=== PATIENT | female | born 1960 | race Caucasian/White ===

== ENCOUNTER 2016-10-14 11:13 | Inpatient (IN) | payer OTHER ==
[~2016-10-14] VITALS: Ht 168.9 cm; Wt 72.6 kg
[2016-10-14] MEDS ORDERED: NS 100 ML (IVPB) BAG IV ONE (11:45)
[2016-10-14] MEDS ORDERED: IOHEXOL 350 MG/ML 100 ML (OMNIPAQUE 350) VIAL IV ONE (11:45)
--- NOTE | 2016-10-14 11:46 | ED Abdominal Pain ---
General Stated Complaint: ABD/BACK PAIN Source of Information: Patient Exam Limitations: No Limitations History of Present Illness Time Seen By Provider: 11:44 Initial Comments Brought to ER by her daughter with reports of this being her third day of epigastric abdominal pain that radiates through to her back. She started out with this pain and vomiting 3 days ago. She has not had a bowel movement in 3 days despite taking laxative and this is very unusual for her. She has not passed gas in 3 days. She states that at the onset of this and even into yesterday some, she had pain between her shoulder blades but no pain in her chest. She does smoke 1.5 pack of cigarettes per day. She's never had this pain before. Timing/Duration: 2-3 Days Severity/Quality: Moderate Location: Epigastric Radiation: No Radiation Associated Symptoms: Back Pain, No Chest Pain, Diaphoresis, No Fever/Chills, Nausea/Vomiting Allergies and Home Medications Allergies Coded Allergies: No Allergy Information Available (Unverified , 10/14/16) Home Medications Ibuprofen 200 Mg Tablet, 600 MG PO q6 PRN for PAIN-MILD TO MODERATE, (Reported) [Otc Sleep Med] , 1 TAB PO HS PRN for sl, (Reported) Review of Systems Constitutional: see HPI, diaphoresis EENTM: No Symptoms Reported Respiratory: No Symptoms Reported, Denies Cough, Denies Shortness of Air Cardiovascular: No Symptoms Reported, Denies Chest Pain, Denies Edema, Denies Irregular Heart Rate, Denies Lightheadedness, Denies Palpitations, Denies Syncope Gastrointestinal: See HPI, Abdominal Pain, Constipated, Nausea, Vomiting Musculoskeletal: no symptoms reported Skin: no symptoms reported Psychiatric/Neurological: No Symptoms Reported Endocrine: No Symptoms Reported Hematologic/Lymphatic: No Symptoms Reported Past Gebzjsg-Rpvxil-Cbahih Hx Patient Social History Recent Foreign Travel: No Contact w/Someone Who Travel: No Physical Exam Vital Signs VS - Last 72 Hours, by Label 10/14/16 10/14/16 10/14/16 11:38 11:58 13:24 Temp 98.9 98.9 98.9 Pulse 87 Resp 18 B/P (MAP) 137/98 Pulse Ox 95 O2 Delivery Room Air Capillary Refill : General Appearance: WD/WN, no apparent distress HEENT: PERRL/EOMI, normal ENT inspection Neck: non-tender, full range of motion Respiratory: no respiratory distress, no accessory muscle use Cardiovascular: regular rate, rhythm, no murmur Gastrointestinal: normal bowel sounds, soft, abnormal bowel sounds (hypoactive) , tenderness Neurologic/Psychiatric: alert, normal mood/affect, oriented x 3 Skin: normal color, warm/dry Progress/Results/Core Measures Results/Orders Lab Results Laboratory Tests Test 10/14/16 11:38 10/14/16 11:45 Range/Units Urine Color YELLOW Urine Clarity VERY CLOUDY H Urine pH 6 5-9 Urine Specific [place] 1.025 H 1.016-1.022 Urine Protein 1+ H NEGATIVE Urine Glucose (UA) NEGATIVE NEGATIVE Urine Ketones NEGATIVE NEGATIVE Urine Nitrite NEGATIVE NEGATIVE Urine Bilirubin NEGATIVE NEGATIVE Urine Urobilinogen 1 NORMAL MG/DL Urine Leukocyte Esterase 2+ H NEGATIVE Urine RBC (Auto) 1+ H NEGATIVE Urine RBC 0-2 /HPF Urine WBC 5-10 H /HPF Urine Squamous Epithelial Cells 5-10 /HPF Urine Crystals NONE /LPF Urine Bacteria LARGE H /HPF Urine Casts NONE /LPF Urine Mucus NEGATIVE /LPF Urine Culture Indicated YES White Blood Count 10.1 4.3-11.0 10^3/uL Red Blood Count 4.62 4.35-5.85 10^6/uL Hemoglobin 14.7 11.5-16.0 G/DL Hematocrit 42 35-52 % Mean Corpuscular Volume 90 80-99 FL Mean Corpuscular Hemoglobin 32 25-34 PG Mean Corpuscular Hemoglobin Concent 35 32-36 G/DL Red Cell Distribution Width 12.5 10.0-14.5 % Platelet Count 418 H 130-400 10^3/uL Mean Platelet Volume 9.2 7.4-10.4 FL Neutrophils (%) (Auto) 61 42-75 % Lymphocytes (%) (Auto) 31 12-44 % Monocytes (%) (Auto) 7 0-12 % Eosinophils (%) (Auto) 0 0-10 % Basophils (%) (Auto) 0 0-10 % Neutrophils # (Auto) 6.2 1.8-7.8 X 10^3 Lymphocytes # (Auto) 3.2 1.0-4.0 X 10^3 Monocytes # (Auto) 0.7 0.0-1.0 X 10^3 Eosinophils # (Auto) 0.0 0.0-0.3 10^3/uL Basophils # (Auto) 0.0 0.0-0.1 10^3/uL Sodium Level 135 135-145 MMOL/L Potassium Level 3.9 3.6-5.0 MMOL/L Chloride Level 101 98-107 MMOL/L Carbon Dioxide Level 20 L 21-32 MMOL/L Anion Gap 14 5-14 MMOL/L Blood Urea Nitrogen 8 7-18 MG/DL Creatinine 0.77 0.60-1.30 MG/DL Estimat Glomerular Filtration Rate > 60 BUN/Creatinine Ratio 10 Glucose Level 111 H 70-105 MG/DL Calcium Level 9.8 8.5-10.1 MG/DL Total Bilirubin 0.7 0.1-1.0 MG/DL Aspartate Amino Transf (AST/SGOT) 15 5-34 U/L Alanine Aminotransferase (ALT/SGPT) 16 0-55 U/L Alkaline Phosphatase 86 40-136 U/L Troponin I < 0.30 <0.30 NG/ML Total Protein 7.4 6.4-8.2 G/DL Albumin 4.4 3.2-4.5 G/DL Lipase 12 8-78 U/L My Orders Orders - MORTEZA JOY SKILLED NURSING CASE MANAGER Cbc With Automated Diff (10/14/16 11:19) Comprehensive Metabolic Panel (10/14/16 11:19) Ua Culture If Indicated (10/14/16 11:19) Lipase (10/14/16 11:19) Saline Lock/Iv-Start (10/14/16 11:19) Ekg Tracing (10/14/16 11:42) Troponin I (10/14/16 11:42) Ct Abdomen/Pelvis W (10/14/16 11:42) Iohexol Injection (Omnipaque 350 Mg/Ml 1 (10/14/16 11:45) Ns (Ivpb) (Sodium Chloride 0.9% Ivpb Bag (10/14/16 11:45) Fentanyl Injection (Sublimaze Injection (10/14/16 12:00) Ondansetron Injection (Zofran Injectio (10/14/16 12:00) Ondansetron Injection (Zofran Injectio (10/14/16 11:50) Urine Culture (10/14/16 11:38) Fentanyl Injection (Sublimaze Injection (10/14/16 13:30) Medications Given in ED Current Medications Medications Dose Ordered Sig/[place] Route Start Time Stop Time Status Last Admin Dose Admin Fentanyl Citrate 50 mcg ONCE ONCE IVP 10/14/16 12:00 10/14/16 12:01 DC 10/14/16 11:58 50 MCG Fentanyl Citrate 75 mcg ONCE ONCE IVP 10/14/16 13:30 10/14/16 13:31 DC 10/14/16 13:24 75 MCG Iohexol 100 ml ONCE ONCE IV 10/14/16 11:45 10/14/16 11:46 DC 10/14/16 12:26 100 ML Ondansetron HCl 4 mg ONCE ONCE IVP 10/14/16 12:00 10/14/16 12:01 DC 10/14/16 11:56 4 MG Sodium Chloride 100 ml ONCE ONCE IV 10/14/16 11:45 10/14/16 11:46 DC 10/14/16 12:26 80 ML Vital Signs/I&O Vital Sign - Last 12Hours 10/14/16 10/14/16 10/14/16 11:38 11:58 13:24 Temp 98.9 98.9 98.9 Pulse 87 Resp 18 B/P (MAP) 137/98 Pulse Ox 95 O2 Delivery Room Air Diagnostic Imaging Diagonstic Imaging: CT Comments NAME: PIERO DUENAS [facility] REC#: [id number] PT STATUS: REG ER : 1960 PHYSICIAN: MORTEZA JOY APRN ADMIT DATE: 10/14/16/ER Draft Date of Exam:10/14/16 CT ABDOMEN/PELVIS W PROCEDURE: CT abdomen and pelvis with contrast. TECHNIQUE: Multiple contiguous axial images were obtained through the abdomen and pelvis after administration of intravenous contrast. INDICATION: Upper abdominal and back pain. Vomiting. No comparison is available. FINDINGS: The visualized lung bases are clear without infiltrate or effusion. The liver demonstrates no evidence of a focal intrahepatic abnormality. The patient is status post cholecystectomy. There is no abnormal biliary dilatation. The pancreas appears normal. The spleen is unremarkable. There is no adrenal mass. The kidneys enhance normally and are nonobstructed. There are prior operative changes demonstrated of a gastric bypass. There is abnormal dilation demonstrated of the Skylar limb. This measures up to 5.4 cm in diameter. There is some mild swirling demonstrated of the upper mesentery with some prominent lymph nodes demonstrated within the mesentery and omentum. The findings are suspect for obstruction of this Skylar limb. The possibility of internal hernia would also be a consideration. Remainder of the loops of small and large bowel appear normal in caliber. There is no evidence of free air or evidence of abscess. There is no pneumatosis or portal venous gas. There is a small degree of free fluid within the low pelvis. The urinary bladder is nondistended. The patient is status post previous hysterectomy. Acute osseous abnormality is demonstrated. Atherosclerotic calcification within the aorta and mesenteric vessels appear patent. IMPRESSION: 1. Patient status post previous gastric bypass. There is abnormal dilation demonstrated of the Skylar limb measuring up to 5.4 cm which would suggest obstruction of this limb. There are prominent central mesenteric and omental lymph nodes and there is some swirling of the mesentery. Given this mesenteric swirling and prior surgical history, the possibility of an internal hernia as a cause of obstruction is a primary consideration. 2. There is no free air or evidence of abscess. There is no pneumatosis. 3. There is a small degree of free fluid demonstrated within the low pelvis. Dictated on workstation # [id number] Dict: 10/14/16 1243 Trans: 10/14/16 1303 B[place]NER [id number] Interpreted by: VICKY LAURA MD Electronically signed by: Departure Communication Time/Spoke to Admitting Phy: 13:[address] Cortes accepts patient for admission Progress Notes 1340-I discussed case with Dr. Edward. He is evaluated the patient. Patient would like an opinion from Dr. Cortes and Dr. Edward agrees with this plan. I discussed the case with Dr. Cortes. He will take the patient for admission, recommends antiemetics, pain medication and IV fluids, nothing by mouth he will see the patient tonight or tomorrow morning. Impression Impression: Primary Impression: Bowel obstruction Disposition: ADMITTED INPATIENT Condition: Stable Decision to Admit Reason: Admit from ER (General) Decision to Admit/Date: Oct 14, 2016 Time/Decision to Admit Time: 13:10 Departure-Patient Inst. Decision time for Depature: 13:09 Referrals: IHSAN DELACRUZ DO (PCP/Family) Primary Care Physician MORTEZA JOY SKILLED NURSING CASE MANAGER Oct 14, 2016 11:46
[2016-10-14] MEDS ORDERED: ONDANSETRON 4 MG/2 ML (SDV) Z0FRAN ONE (11:50)
[2016-10-14 11:53] LABS: BASOPHILS % (AUTO) 0 % (0-10); EOSINOPHILS % (AUTO) 0 % (0-10); LYMPHOCYTES # (AUTO) 3.2 X 10^3 (1.0-4.0); LYMPHOCYTES % (AUTO) 31 % (12-44); MEAN CORPUSCULAR HEMOGLOBIN 32 PG (25-34); MEAN CORPUSCULAR HGB CONC 35 G/DL (32-36); MEAN CORPUSCULAR VOLUME 90 FL (80-99); MEAN PLATELET VOLUME 9.2 FL (7.4-10.4); MONOCYTES # (AUTO) 0.7 X 10^3 (0.0-1.0); MONOCYTES % (AUTO) 7 % (0-12); NEUTROPHILS # (AUTO) 6.2 X 10^3 (1.8-7.8); NEUTROPHILS % (AUTO) 61 % (42-75); PLATELET COUNT 418 10^3/uL (130-400); RED BLOOD COUNT 4.62 10^6/uL (4.35-5.85); RED CELL DISTRIBUTION WIDTH 12.5 % (10.0-14.5); WHITE BLOOD COUNT 10.1 10^3/uL (4.3-11.0)
[2016-10-14] MEDS ORDERED: ONDANSETRON 4 MG/2 ML (SDV) Z0FRAN IVP ONE (12:00)
[2016-10-14] MEDS ORDERED: fentaNYL INJECTION 100 MCG/2 ML AMP IVP ONE ×2 (12:00→13:30)
[2016-10-14 12:01] LABS: BILIRUBIN,URINE NEGATIVE (NEGATIVE); KETONES,URINE NEGATIVE (NEGATIVE); LEUKOCYTE ESTERASE ,URINE 2+ (NEGATIVE); NITRITE,URINE NEGATIVE (NEGATIVE); PH,URINE 6 (5-9); PROTEIN,URINE 1+ (NEGATIVE); UROBILINOGEN,URINE 1 MG/DL (NORMAL)
[2016-10-14 12:13] LABS: ALANINE AMINOTRANSFERASE 16 U/L (0-55); ALBUMIN 4.4 G/DL (3.2-4.5); ANION GAP 14 MMOL/L (5-14); ASPARTATE AMINO TRANSFERASE 15 U/L (5-34); BILIRUBIN,TOTAL 0.7 MG/DL (0.1-1.0); BLOOD UREA NITROGEN 8 MG/DL (7-18); BUN/CREATININE RATIO 10; CALCIUM 9.8 MG/DL (8.5-10.1); CARBON DIOXIDE 20 MMOL/L (21-32); CHLORIDE 101 MMOL/L (98-107); CREATININE SERUM 0.77 MG/DL (0.60-1.30); GFR ESTIMATED > 60; GLUCOSE 111 MG/DL (70-105); LIPASE 12 U/L (8-78); POTASSIUM 3.9 MMOL/L (3.6-5.0); SODIUM 135 MMOL/L (135-145); TOTAL PROTEIN 7.4 G/DL (6.4-8.2)
[2016-10-14] MEDS ORDERED: OTC SLEEP MED PO (12:18)
[2016-10-14] MEDS ORDERED: IBUP-2055 PO (12:18)
[2016-10-14 12:19] LABS: TROPONIN I < 0.30 NG/ML (<0.30)
--- NOTE | 2016-10-14 13:03 | Diagnostic Imaging Report ---
PROCEDURE: CT abdomen and pelvis with contrast. TECHNIQUE: Multiple contiguous axial images were obtained through the abdomen and pelvis after administration of intravenous contrast. INDICATION: Upper abdominal and back pain. Vomiting. No comparison is available. FINDINGS: The visualized lung bases are clear without infiltrate or effusion. The liver demonstrates no evidence of a focal intrahepatic abnormality. The patient is status post cholecystectomy. There is no abnormal biliary dilatation. The pancreas appears normal. The spleen is unremarkable. There is no adrenal mass. The kidneys enhance normally and are nonobstructed. There are prior operative changes demonstrated of a gastric bypass. There is abnormal dilation demonstrated of the Skylar limb. This measures up to 5.4 cm in diameter. There is some mild swirling demonstrated of the upper mesentery with some prominent lymph nodes demonstrated within the mesentery and omentum. The findings are suspect for obstruction of this Skylar limb. The possibility of internal hernia would also be a consideration. Remainder of the loops of small and large bowel appear normal in caliber. There is no evidence of free air or evidence of abscess. There is no pneumatosis or portal venous gas. There is a small degree of free fluid within the low pelvis. The urinary bladder is nondistended. The patient is status post previous hysterectomy. Acute osseous abnormality is demonstrated. Atherosclerotic calcification within the aorta and mesenteric vessels appear patent. IMPRESSION: 1. Patient status post previous gastric bypass. There is abnormal dilation demonstrated of the Skylar limb measuring up to 5.4 cm which would suggest obstruction of this limb. There are prominent central mesenteric and omental lymph nodes and there is some swirling of the mesentery. Given this mesenteric swirling and prior surgical history, the possibility of an internal hernia as a cause of obstruction is a primary consideration. 2. There is no free air or evidence of abscess. There is no pneumatosis. 3. There is a small degree of free fluid demonstrated within the low pelvis. Dictated by: Dictated on workstation # [id number]
--- NOTE | 2016-10-14 14:34 | Consultation ---
History of Present Illness History of Present Illness Patient Consulted On(greg/time) 10/14/16 14:29 Date of Admission History of Present Illness Consult requested by Juan J Soriano for bowel obstruction. Patient is a 56 year old female who has history of gastric bypass in 2007. She presents with 3 days of abdominal pain in the upper portion of abdomen with radiation to the back. Patient has had nausea and emesis. She has 9/10 pain and does not want to lay flat on her back, she feels more comfortable leaning forward. Patient has not had anything like this before. She had ct scan abdomen and pelvis done demonstrating the Skylar limb to be dilated and swirling of the mesentery possibly obstruction caused by internal hernia. Allergies and Home Medications Allergies Coded Allergies: No Allergy Information Available (Unverified , 10/14/16) Home Medications Ibuprofen 200 Mg Tablet, 600 MG PO q6 PRN for PAIN-MILD TO MODERATE, (Reported) [Otc Sleep Med] , 1 TAB PO HS PRN for sl, (Reported) Past Qmahmfh-Fvfkcw-Oolqqt Hx Patient Social History Alcohol Use: Denies Use Recreational Drug Use: No Smoking Status: Current Everyday Smoker Type Used: Cigarettes 2nd Hand Smoke Exposure: Yes Recent Foreign Travel: No Contact w/Someone Who Travel: No Recent Infectious Disease Expo: No Recent Hopitalizations: No Immunizations Up To Date Tetanus Booster (TDap): More than 5yrs Seasonal Allergies Seasonal Allergies: No Surgeries HX Surgeries: Yes (gastric bypass, carpal tunnel) Surgeries: Abdominal, Gallbladder, Hysterectomy Respiratory Hx Respiratory Disorders: Yes Respiratory Disorders: COPD Cardiovascular Hx Cardiac Disorders: No Neurological Hx Neurological Disorders: No Reproductive System Hx 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 Genitourinary Hx Genitourinary Disorders: No Gastrointestinal Hx Gastrointestinal Disorders: No Musculoskeletal Hx Musculoskeletal Disorders: Yes Musculoskeletal Disorders: Chronic Back Pain Endocrine Hx Endocrine Disorders: No HEENT HX ENT Disorders: No Cancer Hx Cancer: No Psychosocial Hx Psychiatric Problems: No Integumentary HX Skin/Integumentary Disorder: No Blood Transfusions Hx Blood Disorders: No Adverse Reaction to a Blood Tr: No Family Medical History Significant Family History: No Pertinent Family Hx Review of Systems-General Constitutional: see HPI EENTM: no symptoms reported Respiratory: no symptoms reported Cardiovascular: no symptoms reported Gastrointestinal: abdominal pain, nausea, vomiting, other (upper abdomen) Genitourinary: no symptoms reported Musculoskeletal: no symptoms reported Skin: no symptoms reported Psychiatric/Neurological: No Symptoms Reported Physical Exam-General Problems Physical Exam Vital Signs Vital Sign - Last 12Hours 10/14/16 11:38 Temp 98.9 Pulse 87 Resp 18 B/P (MAP) 137/98 Pulse Ox 95 O2 Delivery Room Air Capillary Refill : Less Than 3 Seconds General Appearance: other (sitting in bed leaning forward) HEENT: PERRL/EOMI, normal ENT inspection Neck: supple Respiratory: no respiratory distress, no accessory muscle use Cardiovascular: regular rate, rhythm Gastrointestinal: distended (slight distention), tenderness (significant tenderness on palpation in the upper portion of abdomen) Rectal: deferred Back: normal inspection Extremities: non-tender Neurologic/Psychiatric: alert, normal mood/affect, oriented x 3 Skin: warm/dry Data Review Labs Laboratory Tests 10/14/16 11:38: Urine Color YELLOW, Urine Clarity VERY CLOUDYH, Urine pH 6, Urine Specific [place] 1.025H, Urine Protein 1+H, Urine Glucose (UA) NEGATIVE, Urine Ketones NEGATIVE, Urine Nitrite NEGATIVE, Urine Bilirubin NEGATIVE, Urine Urobilinogen 1 , Urine Leukocyte Esterase 2+H, Urine RBC (Auto) 1+H, Urine RBC 0-2, Urine WBC 5 -10H, Urine Squamous Epithelial Cells 5-10, Urine Crystals NONE, Urine Bacteria LARGEH, Urine Casts NONE, Urine Mucus NEGATIVE, Urine Culture Indicated YES 10/14/16 11:45: White Blood Count 10.1, Red Blood Count 4.62, Hemoglobin 14.7, Hematocrit 42, Mean Corpuscular Volume 90, Mean Corpuscular Hemoglobin 32, Mean Corpuscular Hemoglobin Concent 35, Red Cell Distribution Width 12.5, Platelet Count 418H, Mean Platelet Volume 9.2, Neutrophils (%) (Auto) 61, Lymphocytes (%) (Auto) 31, Monocytes (%) (Auto) 7, Eosinophils (%) (Auto) 0, Basophils (%) (Auto) 0, Neutrophils # (Auto) 6.2, Lymphocytes # (Auto) 3.2, Monocytes # (Auto) 0.7, Eosinophils # (Auto) 0.0, Basophils # (Auto) 0.0, Sodium Level 135, Potassium Level 3.9, Chloride Level 101, Carbon Dioxide Level 20L, Anion Gap 14, Blood Urea Nitrogen 8, Creatinine 0.77, Estimat Glomerular Filtration Rate > 60, BUN/ Creatinine Ratio 10, Glucose Level 111H, Calcium Level 9.8, Total Bilirubin 0.7 , Aspartate Amino Transf (AST/SGOT) 15, Alanine Aminotransferase (ALT/SGPT) 16, Alkaline Phosphatase 86, Troponin I < 0.30, Total Protein 7.4, Albumin 4.4, Lipase 12 Assessment/Plan Assessment/Plan Assessment/Plan nausea and vomiting abdominal pain epigastric possible internal hernia history of gastric bypass. after discussing and evaluating patient i am concerned for internal hernia causing bowel obstruction and possible ischemic changes to bowel. patient on exam is significantly tender. I discussed risks and benefits of surgical intervention with patient and her daughter. It was asked that Dr. Cortes to be contacted and see if he would put input in as well. This was done and he has accepted patient to his service. Patient and family agree with Dr. Cortes taking over care and I will sign off at this time. LARY WING DO Oct 14, 2016 2:34 pm
[2016-10-14 14:38] VITALS: BP 142/80
[2016-10-14] MEDS ORDERED: PROCHLORPERAZINE 10 MG/2ML INJ (COMPAZINE) IV PRN (14:45)
[2016-10-14] MEDS ORDERED: CATHETER FLUSH 10 ML SYR IV PRN (14:45)
[2016-10-14] MEDS ORDERED: ONDANSETRON 4 MG/2 ML (SDV) Z0FRAN IV PRN (14:45)
[2016-10-14] MEDS: fentaNYL INJECTION 100 MCG/2 ML AMP IV PRN ×2 (15:01→18:45)
[2016-10-14] MEDS: NICOTINE 21 MG (NICODERM) PATCH TD SCH (15:04)
[2016-10-14] MEDS: NS W/KCL 20 MEQ/L 1,000 ML IV SCH (15:04)
[2016-10-14] MEDS: LORazepam INJ 2 MG/ML (ATIVAN) VIAL IVP PRN ×2 (15:36→21:21)
[2016-10-14 16:00] VITALS: BP 109/65
[2016-10-14] MEDS: CIPROFLOXACIN IV 400MG/200ML 200 ML IV SCH (18:47)
[2016-10-14 19:53] VITALS: BP 96/63
--- NOTE | 2016-10-14 21:05 | HISTORY AND PHYSICAL ---
DATE OF SERVICE: 10/14/2016 ATTENDING PRIMARY CARE PHYSICIAN: Dr. Santo Telles HISTORY OF PRESENT ILLNESS: The patient is a 56-year-old female who we have seen before in the past. She has history of morbid obesity and medical comorbidities including degenerative joint disease. She underwent laparoscopic Skylar-En-Y gastric bypass in [address] Prasad in [place]. At that time her weight was approximately 329 pounds with a body mass index of 53.0. Over the years she has done well. She has done well with weight loss and maintaining the weight loss. Her current weight is approximately 160 pounds with a body mass index of 25.7 and she has not developed any new medical problems. She reports that in the past 3 days she has developed crampy pain in the epigastric region with some episodes of nausea and vomiting. She states that initially this was mild. However this had persisted and then she decided to seek medical attention. Upon admission CT scan was performed which did show a dilated Skylar limb of the bypass. There was no acute inflammatory changes and no signs of perforation. It is unsure if the bypass was antecolic versus retrocolic. However based on the CT scan it appears to be antecolic. CT scan findings also suggest the possibility of an internal hernia. However we cannot rule out distal anastomotic stricture. At this time she is comfortable and is not experiencing any nausea or vomiting. 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 She is not showing any signs of sepsis as well and is clinically stable. PAST MEDICAL HISTORY: Degenerative joint disease. PAST SURGICAL HISTORY: Laparoscopic Skylar-En-Y gastric biopsy in 2007, partial hysterectomy in 1989, completion oophorectomy in 1999, laparoscopic cholecystectomy in 2006, bilateral carpal tunnel release. ALLERGIES: No known drug allergies. MEDICATIONS: None. SOCIAL HISTORY: Positive for smoking with 14-vtge-vgmc history. Negative alcohol. FAMILY HISTORY: Father with myocardial infarction at age 41. Mother with myocardial infarction at age 69 and stroke. REVIEW OF SYSTEMS: Well-nourished female currently in no acute distress. She is not experiencing any shortness of breath or difficulty with breathing. No chest pain, palpitations or diaphoresis. Intermittent episodes of nausea as well as epigastric crampy pain. No nausea or vomiting since admission. She does not report any hematemesis and no coffee-ground emesis. She states that she normally has bowel movements on a regular basis. However has not had a bowel movement in the past 3 days. No red blood per rectum or dark, tarry stools. No fever or chills. No recent inadvertent weight loss. PHYSICAL EXAMINATION: VITAL SIGNS: Temperature 98.1, blood pressure 109/65, pulse 59, respirations 20, pulse-ox 95% on room air. CHEST: Clear. HEART: Regular. EXTREMITIES: No lower extremity edema. Negative Katie Sign. HEENT: No scleral icterus. NECK: No cervical lymphadenopathy. ABDOMEN: Soft and nondistended. There is pain in the epigastric region as well as the upper quadrants of the abdomen upon deep palpation. There is voluntary guarding. No rebound. LABORATORY DATA: WBC 10.1, hemoglobin 14.7, hematocrit 42, platelets 418,000. BUN 8, creatinine 0.77. Liver function enzymes are normal. Urinalysis did show 2+ leukocyte esterase as well as a large amount of bacteria. ASSESSMENT AND PLAN: 1. The patient is a 56-year-old female with partial versus complete small bowel obstruction secondary to adhesion tissue versus internal herniation versus anastomotic stricture. At this time she is stable and we will proceed with conservative management with bowel rest, IV fluids as well as p.r.n. medications. If she does have bowel function and decreased abdominal pain we may start a clear liquid diet and advance as tolerated. If she continues to show signs of obstruction we will then proceed with upper GI Gastrografin small bowel follow through. This may delineate internal herniation versus stricture. If this is a hernia and a complete obstruction is identified or a stricture we will proceed with diagnostic laparoscopy, reduction of hernia and repair of the mesenteric defect. If an anastomotic stricture is identified we will also proceed with resection of the strictured segment and reanastomosis. 2. She also does have a urinary tract infection and we will treat her with ciprofloxacin. Job ID: [id number] DocumentID: [id number] Dictated Date: 10/14/2016 19:50:15 Illustrator Set Date: 10/14/2016 21:04:30 Dictated By: SHERRIE FERMIN MD [facility]
[2016-10-14] MEDS: PANTOPRAZOLE 40 MG/10 ML (PROTONIX) VIAL IV SCH (21:21)
[2016-10-14] MEDS: fentaNYL INJECTION 100 MCG/2 ML AMP IVP PRN (21:21)
[2016-10-15] VITALS (7 sets, daily range): BP systolic 102–147; BP diastolic 64–86
[2016-10-15] MEDS: NS W/KCL 20 MEQ/L 1,000 ML IV SCH ×4 (00:04→20:42)
[2016-10-15] MEDS: fentaNYL INJECTION 100 MCG/2 ML AMP IVP PRN ×5 (00:06→19:26)
[2016-10-15] MEDS: LORazepam INJ 2 MG/ML (ATIVAN) VIAL IVP PRN ×3 (05:03→19:51)
[2016-10-15 05:06] LABS: BASOPHILS % (AUTO) 1 % (0-10); EOSINOPHILS # (AUTO) 0.1 10^3/uL (0.0-0.3); EOSINOPHILS % (AUTO) 2 % (0-10); LYMPHOCYTES % (AUTO) 45 % (12-44); MEAN CORPUSCULAR HEMOGLOBIN 32 PG (25-34); MEAN CORPUSCULAR HGB CONC 34 G/DL (32-36); MEAN CORPUSCULAR VOLUME 93 FL (80-99); MEAN PLATELET VOLUME 9.9 FL (7.4-10.4); MONOCYTES # (AUTO) 0.5 X 10^3 (0.0-1.0); MONOCYTES % (AUTO) 7 % (0-12); NEUTROPHILS # (AUTO) 3.1 X 10^3 (1.8-7.8); NEUTROPHILS % (AUTO) 47 % (42-75); PLATELET COUNT 344 10^3/uL (130-400); RED BLOOD COUNT 4.07 10^6/uL (4.35-5.85); RED CELL DISTRIBUTION WIDTH 12.6 % (10.0-14.5); WHITE BLOOD COUNT 6.8 10^3/uL (4.3-11.0)
[2016-10-15 05:28] LABS: ANION GAP 10 MMOL/L (5-14); BLOOD UREA NITROGEN 8 MG/DL (7-18); BUN/CREATININE RATIO 11; CALCIUM 8.8 MG/DL (8.5-10.1); CARBON DIOXIDE 22 MMOL/L (21-32); CHLORIDE 106 MMOL/L (98-107); GFR ESTIMATED > 60; GLUCOSE 91 MG/DL (70-105); POTASSIUM 3.9 MMOL/L (3.6-5.0); SODIUM 138 MMOL/L (135-145)
[2016-10-15] MEDS: CIPROFLOXACIN IV 400MG/200ML 200 ML IV SCH ×2 (09:47→20:42)
[2016-10-15] MEDS: PANTOPRAZOLE 40 MG/10 ML (PROTONIX) VIAL IV SCH ×2 (09:47→19:51)
--- NOTE | 2016-10-15 10:45 | Progress Note (SOAP) ---
Subjective Subjective/Events-last exam doing much better. no nausea/vomiting. no BM yet. minimal abd pain. Objective Exam Vital Signs Date Time Temp Pulse Resp B/P (MAP) Pulse Ox O2 Delivery O2 Flow Rate FiO2 10/15/16 08:30 97.4 78 20 114/73 93 Room Air 10/15/16 04:00 96.2 66 18 102/70 93 Room Air 10/15/16 00:00 96.7 77 16 114/65 92 Room Air 10/14/16 19:53 96.3 72 19 96/63 92 Room Air 10/14/16 16:00 98.1 59 20 109/65 95 Room Air 10/14/16 14:38 97.3 67 20 142/80 97 Room Air 10/14/16 14:20 98.9 76 16 94 10/14/16 13:24 98.9 10/14/16 11:58 98.9 10/14/16 11:38 98.9 87 18 137/98 95 Room Air I & O 10/15/16 07:00 Intake Total 200 ml Output Total 1200 ml Balance -1000 ml Capillary Refill : Less Than 3 Seconds General Appearance: No Apparent Distress HEENT: PERRL/EOMI Neck: Full Range of Motion Respiratory: Chest Non Tender, Rhonci, Wheezing Cardiovascular: Regular Rate, Rhythm Gastrointestinal: normal bowel sounds, soft Extremity: Normal Capillary Refill Neurologic/Psychiatric: Alert, Oriented x3 Skin: Normal Color Lymphatic: No Adenopathy Results Lab Laboratory Tests 10/14/16 11:38: Urine Color YELLOW, Urine Clarity VERY CLOUDYH, Urine pH 6, Urine Specific [place] 1.025H, Urine Protein 1+H, Urine Glucose (UA) NEGATIVE, Urine Ketones NEGATIVE, Urine Nitrite NEGATIVE, Urine Bilirubin NEGATIVE, Urine Urobilinogen 1 , Urine Leukocyte Esterase 2+H, Urine RBC (Auto) 1+H, Urine RBC 0-2, Urine WBC 5 -10H, Urine Squamous Epithelial Cells 5-10, Urine Crystals NONE, Urine Bacteria LARGEH, Urine Casts NONE, Urine Mucus NEGATIVE, Urine Culture Indicated YES 10/14/16 11:45: White Blood Count 10.1, Red Blood Count 4.62, Hemoglobin 14.7, Hematocrit 42, Mean Corpuscular Volume 90, Mean Corpuscular Hemoglobin 32, Mean Corpuscular Hemoglobin Concent 35, Red Cell Distribution Width 12.5, Platelet Count 418H, Mean Platelet Volume 9.2, Neutrophils (%) (Auto) 61, Lymphocytes (%) (Auto) 31, Monocytes (%) (Auto) 7, Eosinophils (%) (Auto) 0, Basophils (%) (Auto) 0, Neutrophils # (Auto) 6.2, Lymphocytes # (Auto) 3.2, Monocytes # (Auto) 0.7, Eosinophils # (Auto) 0.0, Basophils # (Auto) 0.0, Sodium Level 135, Potassium Level 3.9, Chloride Level 101, Carbon Dioxide Level 20L, Anion Gap 14, Blood Urea Nitrogen 8, Creatinine 0.77, Estimat Glomerular Filtration Rate > 60, BUN/ Creatinine Ratio 10, Glucose Level 111H, Calcium Level 9.8, Total Bilirubin 0.7 , Aspartate Amino Transf (AST/SGOT) 15, Alanine Aminotransferase (ALT/SGPT) 16, Alkaline Phosphatase 86, Troponin I < 0.30, Total Protein 7.4, Albumin 4.4, Lipase 12 10/15/16 04:20: White Blood Count 6.8, Red Blood Count 4.07L, Hemoglobin 13.0, Hematocrit 38, Mean Corpuscular Volume 93, Mean Corpuscular Hemoglobin 32, Mean Corpuscular Hemoglobin Concent 34, Red Cell Distribution Width 12.6, Platelet Count 344, Mean Platelet Volume 9.9, Neutrophils (%) (Auto) 47, Lymphocytes (%) (Auto) 45H , Monocytes (%) (Auto) 7, Eosinophils (%) (Auto) 2, Basophils (%) (Auto) 1, Neutrophils # (Auto) 3.1, Lymphocytes # (Auto) 3.0, Monocytes # (Auto) 0.5, Eosinophils # (Auto) 0.1, Basophils # (Auto) 0.0, Sodium Level 138, Potassium Level 3.9, Chloride Level 106, Carbon Dioxide Level 22, Anion Gap 10, Blood Urea Nitrogen 8, Creatinine 0.70, Estimat Glomerular Filtration Rate > 60, BUN/ Creatinine Ratio 11, Glucose Level 91, Calcium Level 8.8 Microbiology 10/14/16 Urine Culture - Preliminary, Resulted Probable Klebsiella/Enterobact Assessment/Plan Assessment/Plan Assess & Plan/Chief Complaint nausea/vomiting and abd pain s/p gladys-en-Y gastric bypass. PSBO secondary adhesions vs. internal hernia vs. distal anastomotic stricture. clear liquids today and small bowel follow thru in am. Clinical Quality Measures DVT/VTE Risk/Contraindication: Risk Factor Score Per Nursin RFS Level Per Nursing on Admit: 2=Moderate SHERRIE FERMIN MD Oct 15, 2016 10:45 am
--- NOTE | 2016-10-15 11:01 | Diagnostic Imaging Report ---
EXAM: Three views of the abdomen. INDICATION: Abdominal pain. Small bowel obstruction. CORRELATION is made with the CT examination performed the previous day. FINDINGS: There are sutures related to previous gastric surgery. The prior dilated loop of small bowel on the previous CT examination is less apparent on today's exam. There is gas demonstrated within the colon. There are surgical clips in the right upper quadrant. No abnormal abdominal calcifications are evident. The lung bases are clear. IMPRESSION: Previous operative changes related to gastric bypass are again noted. The previously described dilated loop of small bowel within the upper abdomen is less apparent on today's examination. There is gas demonstrated within the colon to the level of the rectum. Dictated by: Dictated on workstation # [id number]
[2016-10-15] MEDS: NICOTINE 21 MG (NICODERM) PATCH TD SCH ×3 (16:00→17:05)
[2016-10-15] MEDS: NICOTINE PATCH REMOVAL TP SCH ×2 (16:23→18:33)
[2016-10-16] MEDS: fentaNYL INJECTION 100 MCG/2 ML AMP IVP PRN ×4 (02:34→12:26)
[2016-10-16] MEDS: LORazepam INJ 2 MG/ML (ATIVAN) VIAL IVP PRN ×2 (02:38→10:02)
[2016-10-16 04:00] VITALS: BP 127/77
[2016-10-16] MEDS: NS W/KCL 20 MEQ/L 1,000 ML IV SCH ×2 (05:47→14:55)
[2016-10-16] MEDS: NICOTINE 21 MG (NICODERM) PATCH TD SCH (07:35)
[2016-10-16 08:00] VITALS: BP 119/76
[2016-10-16] MEDS: PANTOPRAZOLE 40 MG/10 ML (PROTONIX) VIAL IV SCH (09:34)
[2016-10-16] MEDS: CIPROFLOXACIN IV 400MG/200ML 200 ML IV SCH (09:34)
[2016-10-16] MEDS ORDERED: DIATRIZOATE MEGLUM/SODIUM 37% 120 ML (GASTROGRAFIN) PO ONE (09:45)
--- NOTE | 2016-10-16 11:55 | Diagnostic Imaging Report ---
EXAMINATION: Gastrografin small bowel follow through. INDICATION: History of gastric bypass. TECHNIQUE: Trash Collector image of the abdomen was performed. Subsequently, the patient was given Gastrografin and serial images of the abdomen were obtained. FINDINGS: Trash Collector image of the abdomen demonstrates small to moderate amount of fecal material. No significant abnormality. There are surgical sutures in the upper abdomen and surgical clips in the upper right abdomen. The stomach is not well seen on these images in part due to postsurgical changes and in part related to inadequate cranial extent of the imaging performed. The small bowel loops demonstrate slight dilatation in the proximal aspect without evidence of obstruction with transient time into the colon of less than one hour seen. There is no suspicious filling defects identified. IMPRESSION: Postsurgical changes in the upper abdomen with mild dilatation of proximal small bowel loops could be related to underlying inflammatory or infectious process. No evidence of obstruction. Based on the postsurgical changes however, some of the bowel loops and the stomach are not opacified due to the bypass and obstruction in the afferent limb cannot be evaluated on this exam. Consider CT scan evaluation with oral contrast if symptoms persist. Dictated by: Dictated on workstation # [id number]
[2016-10-16 12:00] VITALS: BP 126/79
[2016-10-16] MEDS ORDERED: DIPH-639 PO (13:45)
[2016-10-16] MEDS ORDERED: PANT40TA2 PO ×2 (14:23→14:36)
[2016-10-16] MEDS ORDERED: CIPR-225 PO (14:36)
[2016-10-16 14:56] VITALS: BP 126/79
--- NOTE | 2016-10-19 14:04 | Physician Query-Final Dx ---
RAJESH MOSELEY 10/19/16 1404: Final Diagnosis Give Final Diagnosis Please give Final Diagnosis SHERRIE FERMIN MD 10/19/16 1547: Final Diagnosis Give Final Diagnosis partial small bowel obstruction of gladys-jejunal limb. RAJESH MOSELEY Oct 19, 2016 14:04 SHERRIE FERMIN MD Oct 19, 2016 15:47
== END 2016-10-16 15:00 | disposition home or self-care (01) | DRG 389 ==
LOC: EDUNIT# 11:13 → ER 11:16 → 4TH 13:58
PROVIDERS: ADMIT Surgery Pediatric Surgery; ATTEND Surgery Pediatric Surgery
DX: K56.5 Intestinal adhesions [bands] with obstruction (postinfection) (principal); N39.0 Urinary tract infection, site not specified; F17.210 Nicotine dependence, cigarettes, uncomplicated; J44.9 Chronic obstructive pulmonary disease, unspecified; K56.60 Unspecified intestinal obstruction; Z98.84 Bariatric surgery status
CPT/HCPCS: 36415; 74020; 74177; 74250; 80048; 80053; 81000; 83690; 84484; 85025; 87077; 87088; 87186; 93005; 96374; 96375; 96376

== ENCOUNTER 2022-09-06 09:28 | Inpatient (IN) | payer SELFPAY ==
[2022-09-06] VITALS (11 sets, daily range): BP systolic 137–201; BP diastolic 75–114
[~2022-09-06] VITALS: Ht 167 cm; Wt 77.2 kg
[~2022-09-06 09:28] MED LIST: AZIT250T12 PO; CIPR-225 PO; DIPH-639 PO; IBUP-2473 PO; IPRA4AER IH; OTC SLEEP MED PO; PANT40TA2 PO; PRD20T PO; RT-ALBUINH IH
--- NOTE | 2022-09-06 09:54 | ED Respiratory ---
General Chief Complaint: Respiratory Problems Stated Complaint: SOB | HIGH BLOOD PRESSURE Nursing Triage Note: PT AMB TO RM 3 PT CO OF SOA AND ELEVATED B\\P. PT IS VERY ANXIOUS AND SL TEARFUL. PT DENIES CP @ THIS X STATES DID HAVE C\\P EARLIER. PT CO OF SL TINGLING OF UPPER AND LOWER EXT. STATES SOMETIMES HAS DISCOMFORT IN NECK. PT IS A DAILY SMOKER. Source: patient Exam Limitations: no limitations History of Present Illness Date Seen by Provider: Sep 06, 2022 Time Seen by Provider: 09:54 Initial Comments Patient is a 62-year-old female who presents to the emergency room with a chief complaint of feeling short of breath, having some left-sided shoulder and neck pain, numbness and tingling in her left arm. Patient is very anxious and a little bit tearful. She states that she woke up with the chest pain and numbne ss at about 330 this morning. She states she does not sleep very well at all most of the time about 3-1/2 to 4 hours a night. She has a long history of a pack and a half smoking daily x50 years. She has recently started a blood pressure medication. She admits that she has had this discomfort in her neck and shoulder and back and arm off and on for the last several weeks. No as sociated nausea but is short of breath. She does have a productive cough but she states most of the time it is clear. No fevers or chills. No earache, runny nose or sore throat. No nausea or vomiting. No problems with bowel or bladder. Currently states that her left arm does have decreased sensation versus the right. She states she thought at one point her left leg was a little bit more "numb" than her right but that is not the case at this moment. All other review of systems reviewed and negative except as stated. Timing/Duration: week, other (Numbness at 330 or 4:00 this morning to the left arm) Severity: moderate Prior Episodes/Possible Cause: no prior episodes Associated Symptoms: chest pain/soreness (left shoulder and neck), cough (chronic) Allergies and Home Medications Allergies Coded Allergies: No Known Drug Allergies (Unverified , 08/07/17) Patient Home Medication List Home Medication List Reviewed: Yes Albuterol Sulfate (Proventil Hfa) 6.7 Gm Hfa.aer.ad, 2 PUFF IH Q4H PRN for SHORTNESS OF BREATH, (Reported) Entered as Reported by: EVY COX on 08/07/17 1527 Albuterol/Ipratropium (Combivent Respimat Inhal [place]rill) 4 Gm Aero, 2 PUFF IH QID, (Reported) Entered as Reported by: EVY COX on 08/07/17 1527 Azithromycin (Azithromycin) 250 Mg Tablet, 250 MG PO DAILY Prescribed by: GABBY DOVER on 08/08/17 1202 Ibuprofen (Ibuprofen) 200 Mg Tablet, 800 MG PO Q6H PRN for PAIN-MILD, (Reported) Entered as Reported by: VARUN CONRAD on 10/14/16 1218 Prednisone (Prednisone) 20 Mg Tab, 20 MG PO DAILY Prescribed by: GABBY DOVER on 08/08/17 1202 Review of Systems Review of Systems Constitutional: see HPI EENTM: no symptoms reported Respiratory: cough Cardiovascular: no symptoms reported Gastrointestinal: no symptoms reported Genitourinary: no symptoms reported : No Musculoskeletal: neck pain (Left-sided neck left shoulder/scapula) Skin: no symptoms reported Psychiatric/Neurological: Anxiety; Denies Headache; Numbness (Left arm); Denies Weakness All Other Systems Reviewed Negative Unless Noted: Yes Past Kvmiglb-Oianup-Nkgefw Hx Immunizations Up To Date Tetanus Booster (TDap): More than 5yrs PED Vaccines UTD: Yes Seasonal Allergies Seasonal Allergies: No Past Medical History Surgeries: Yes (gastric bypass, carpal tunnel,GALLBLADDER,RIGHT KNEE) Abdominal, Gallbladder, Hysterectomy Respiratory: Yes COPD Currently Using CPAP: No Currently Using BIPAP: No Cardiac: No Neurological: No Reproductive Disorders: 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 Sexually Transmitted Disease: No HIV/AIDS: No Genitourinary: No Gastrointestinal: No Musculoskeletal: Yes Chronic Back Pain Endocrine: No HEENT: No Cancer: No Psychosocial: No Integumentary: No Blood Disorders: No Adverse Reaction/Blood Tranf: No Family Medical History Cardiovascular disease 19 FATHER 19 MOTHER Myocardial infarction 19 FATHER (2 HEART ATTACKS AT AGE 52 FROM 2ND HEART ATTACK) 19 MOTHER Neoplasm MATERNAL GRANDMOTHER (BOTH BREAST REMOVED DUE TO BREAST CANCER) No Pertinent Family Hx Physical Exam Vital Signs - First Documented 09/06/22 09:30 Temp 36.7 Pulse 85 Resp 18 B/P (MAP) 157/99 (118) Pulse Ox 96 O2 Delivery Room Air Capillary Refill : Less Than 3 Seconds Height: 5'6.50" Weight: 170lbs. 5.0oz. 77.606513me; 29.00 BMI Method:Stated General Appearance: WD/WN, mild distress (Anxious) Eyes: Bilateral Eye Normal Inspection, Bilateral Eye PERRL, Bilateral Eye EOMI HEENT: PERRL/EOMI, pharynx normal Neck: full range of motion, supple Respiratory: no respiratory distress, no accessory muscle use, rhonchi (Coarse rhonchorous breath sounds bilaterally without wheezes) Cardiovascular: regular rate, rhythm, other (2+ radial pulses) Gastrointestinal: normal bowel sounds, non tender, soft Extremities: normal range of motion, non-tender, normal inspection, no pedal edema, no calf tenderness, normal capillary refill Neurologic/Psychiatric: alert, normal mood/affect, oriented x 3; 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, No EOM palsy, No facial droop, No motor weakness; sensory deficit (Slightly less on the left than the right); No depressed affect, No disoriented x 3 Skin: normal color, warm/dry Progress/Results/Core Measures Suspected Sepsis SIRS Temperature: Pulse: 85 Respiratory Rate: 18 Laboratory Tests 09/06/22 09:45: White Blood Count 7.1 Blood Pressure 157 /99 Mean: 118 Laboratory Tests 09/06/22 09:45: Creatinine 0.78, INR Comment 1.0, Platelet Count 511H, Total Bilirubin 0.5 Results/Orders Lab Results Laboratory Tests Test 09/06/22 09:45 Range/Units White Blood Count 7.1 4.3-11.0 10^3/uL Red Blood Count 4.25 3.80-5.11 10^6/uL Hemoglobin 12.5 11.5-16.0 g/dL Hematocrit 38 35-52 % Mean Corpuscular Volume 89 80-99 fL Mean Corpuscular Hemoglobin 29 25-34 pg Mean Corpuscular Hemoglobin Concent 33 32-36 g/dL Red Cell Distribution Width 15.9 H 10.0-14.5 % Platelet Count 511 H 130-400 10^3/uL Mean Platelet Volume 9.6 9.0-12.2 fL Immature Granulocyte % (Auto) 0 % Neutrophils (%) (Auto) 50 42-75 % Lymphocytes (%) (Auto) 41 12-44 % Monocytes (%) (Auto) 6 0-12 % Eosinophils (%) (Auto) 2 0-10 % Basophils (%) (Auto) 1 0-10 % Neutrophils # (Auto) 3.5 1.8-7.8 10^3/uL Lymphocytes # (Auto) 2.9 1.0-4.0 10^3/uL Monocytes # (Auto) 0.4 0.0-1.0 10^3/uL Eosinophils # (Auto) 0.1 0.0-0.3 10^3/uL Basophils # (Auto) 0.1 0.0-0.1 10^3/uL Immature Granulocyte # (Auto) 0.0 0.0-0.1 10^3/uL Prothrombin Time 14.0 12.2-14.7 SEC INR Comment 1.0 0.8-1.4 Activated Partial Thromboplast Time 31 24-35 SEC Sodium Level 139 135-145 MMOL/L Potassium Level 3.6 3.6-5.0 MMOL/L Chloride Level 107 98-107 MMOL/L Carbon Dioxide Level 18 L 21-32 MMOL/L Anion Gap 14 5-14 MMOL/L Blood Urea Nitrogen 9 7-18 MG/DL Creatinine 0.78 0.60-1.30 MG/DL Estimat Glomerular Filtration Rate 85 BUN/Creatinine Ratio 12 Glucose Level 125 H 70-105 MG/DL Calcium Level 9.5 8.5-10.1 MG/DL Corrected Calcium 9.1 8.5-10.1 MG/DL Magnesium Level 2.0 1.6-2.4 MG/DL Total Bilirubin 0.5 0.1-1.0 MG/DL Aspartate Amino Transf (AST/SGOT) 16 5-34 U/L Alanine Aminotransferase (ALT/SGPT) 15 0-55 U/L Alkaline Phosphatase 89 40-136 U/L Troponin I < 0.028 <0.028 NG/ML Total Protein 7.7 6.4-8.2 GM/DL Albumin 4.5 3.2-4.5 GM/DL My Orders Orders - FERNANDA SUAREZ MD Cbc With Automated Diff (09/06/22 10:19) Magnesium (09/06/22 10:19) Chest 1 View, Ap/Pa Only (09/06/22 10:19) Ekg Tracing (09/06/22 10:19) Comprehensive Metabolic Panel (09/06/22 10:19) Protime With Inr (09/06/22 10:19) Partial Thromboplastin Time (09/06/22 10:19) O2 (09/06/22 10:19) Monitor-Rhythm Ecg Trace Only (09/06/22 10:19) Lipid Panel (09/07/22 06:00) Ed Iv/Invasive Line Start (09/06/22 10:19) Troponin I [place] (09/06/22 10:19) Aspirin Chewable Tablet (Baby Aspirin Ch (09/06/22 10:30) Ondansetron Injection (Zofran Injectio (09/06/22 10:30) Iohexol Injection (Omnipaque 350 Mg/Ml 1 (09/06/22 11:15) Received Contrast (Hold Metformin- Contr (09/06/22 11:15) Ns (Ivpb) (Sodium Chloride 0.9% Ivpb Bag (09/06/22 11:15) Ct Angio Head/Neck (09/06/22 11:14) Nicotine Patch (Nicoderm Patch) (09/06/22 12:45) Medications Given in ED Current Medications Medications Dose Ordered Sig/[place] Route Start Time Stop Time Status Last Admin Dose Admin Aspirin 324 mg ONCE ONCE PO 09/06/22 10:30 09/06/22 10:31 DC 09/06/22 10:43 324 MG Iohexol 75 ml ONCE ONCE IV 09/06/22 11:15 09/06/22 11:16 DC 09/06/22 11:30 75 ML Nicotine 21 mg ONCE ONCE TD 09/06/22 12:45 09/06/22 12:46 DC 09/06/22 13:00 21 MG Ondansetron HCl 4 mg ONCE ONCE IVP 09/06/22 10:30 09/06/22 10:31 DC 09/06/22 10:43 4 MG Sodium Chloride 100 ml ONCE ONCE IV 09/06/22 11:15 09/06/22 11:16 DC 09/06/22 11:30 80 ML Vital Signs/I&O 09/06/22 09/06/22 09/06/22 09:30 09:30 14:35 Temp 36.7 Pulse 85 73 Resp 18 16 B/P (MAP) 157/99 (118) 167/101 Pulse Ox 96 95 95 O2 Delivery Room Air Room Air Capillary Refill : Less Than 3 Seconds Blood Pressure Mean: 118 Progress Note : Time: 12:39 Progress Note Patient seen and examined by me, evaluation today with physical exam, CBC, CHEM 12, coags, serum troponin, EKG, chest x-ray and CTA head and neck. Physical exam pertinent for thin appearing elderly female slightly anxious hypertensive in the 160s over 110 range. Heart is regular, lungs are a little rhonchus. No increased work of breathing or respiratory distress is noted. No lower extremity edema. Abdomen is benign. She has subjective decrease in sensation in the left arm and left leg otherwise no focal neurologic deficits. [id number] is normal/no cerebellar findings. Differential diagnosis TIA/CVA, acute coronary syndrome. Labs reviewed, CBC is normal, chemistry is normal, coags are normal. Serum troponin is undetectable. EKG shows normal sinus rhythm at 89 beats a minute with Q-wave in lead III. No pathology on chest x-ray and head and neck CT angiogram are also unremarkable. Patient remains somewhat hypertensive. Diastolic is a little greater than 100. The patient states that normally her blood pressure is down in the low 100s upper 90s systolic. She states it is only in the last several months that she has noted increasing blood pressure. She states her shoulder and neck discomfort have been off and on over at least the last week. The numbness since just this morning. Case was discussed with Dr. Dover on for [facility]. Discussed admission with the patient and her daughter who is at the bedside, they are both agreeable. Dr. Dover will put in her own bridge orders. Consult to Dr. Palma. ECG Initial ECG Impression Date: Sep 06, 2022 Initial ECG Impression Time: 09:45 Initial ECG Rate: 89 Initial ECG Rhythm: Normal Sinus Initial ECG Intervals NJ 168 QRS 102 QTc 409 Comment Q waves inferiorly, no ST segment elevation or depression. No ectopy. Diagnostic Imaging Diagonstic Imaging: Xray Plain Films/CT/US/NM/MRI: chest Comments [facility] [place], [place] NAME: PIERO DUENAS [facility] REC#: [id number] PT STATUS: REG ER : 1960 PHYSICIAN: FERNANDA SUAREZ MD ADMIT DATE: 09/06/22/ER Draft Date of Exam:09/06/22 CHEST 1 VIEW, AP/PA ONLY INDICATION: Chest pain AP view of chest is obtained. COMPARISON: No previous study is available for comparison at this time. FINDINGS: Heart size and pulmonary vasculature are within normal limits, and the lungs are clear, bilaterally. There has been fusion of lower cervical spine. IMPRESSION: Unremarkable chest. Dictated on workstation # [id number] Dict: 09/06/22 1030 Trans: 09/06/22 1031 CVB [id number] Interpreted by: ROBERT VILLAR MD Electronically signed by: Counseling-Symptomatic: 3-10 Minutes Departure Communication (Admissions) Time/Spoke to Admitting Phy: 12:[address] Dover; admit obs to step down Impression Primary Impression: High blood pressure Qualified Codes: I10 - Essential (primary) hypertension Additional Impressions: TIA (transient ischemic attack) Tobacco use disorder Disposition: ADMITTED INPATIENT Condition: Stable Admissions Decision to Admit Reason: Admit from ER (General) Decision to Admit/Date: Sep 06, 2022 Time/Decision to Admit Time: 12:36 Departure-Patient Inst. Referrals: [facility] (PCP/Family) Primary Care Physician FERNANDA SUAREZ MD Sep 06, 2022 09:54
[2022-09-06 10:28] LABS: BASOPHILS # (AUTO) 0.1 10^3/uL (0.0-0.1); BASOPHILS % (AUTO) 1 % (0-10); EOSINOPHILS # (AUTO) 0.1 10^3/uL (0.0-0.3); EOSINOPHILS % (AUTO) 2 % (0-10); HEMATOCRIT 38 % (35-52); HEMOGLOBIN 12.5 g/dL (11.5-16.0); LYMPHOCYTES # (AUTO) 2.9 10^3/uL (1.0-4.0); LYMPHOCYTES % (AUTO) 41 % (12-44); MEAN CORPUSCULAR HEMOGLOBIN 29 pg (25-34); MEAN CORPUSCULAR HGB CONC 33 g/dL (32-36); MEAN CORPUSCULAR VOLUME 89 fL (80-99); MEAN PLATELET VOLUME 9.6 fL (9.0-12.2); MONOCYTES # (AUTO) 0.4 10^3/uL (0.0-1.0); MONOCYTES % (AUTO) 6 % (0-12); NEUTROPHILS # (AUTO) 3.5 10^3/uL (1.8-7.8); NEUTROPHILS % (AUTO) 50 % (42-75); PLATELET COUNT 511 10^3/uL (130-400); WHITE BLOOD COUNT 7.1 10^3/uL (4.3-11.0)
[2022-09-06] MEDS ORDERED: ONDANSETRON 4 MG/2 ML (SDV) Z0FRAN IVP ONE (10:30)
[2022-09-06] MEDS ORDERED: ASPIRIN 81 MG CHEW (CHILDREN'S ASA) PO ONE (10:30)
[2022-09-06 10:31] LABS: ALBUMIN 4.5 GM/DL (3.2-4.5); POTASSIUM 3.6 MMOL/L (3.6-5.0)
[2022-09-06 10:32] LABS: CALCIUM 9.5 MG/DL (8.5-10.1)
--- NOTE | 2022-09-06 10:32 | Diagnostic Imaging Report ---
INDICATION: Chest pain AP view of chest is obtained. COMPARISON: No previous study is available for comparison at this time. FINDINGS: Heart size and pulmonary vasculature are within normal limits, and the lungs are clear, bilaterally. There has been fusion of lower cervical spine. IMPRESSION: Unremarkable chest. Dictated by: Dictated on workstation # [id number]
[2022-09-06 10:33] LABS: TOTAL PROTEIN 7.7 GM/DL (6.4-8.2)
[2022-09-06 10:35] LABS: BILIRUBIN,TOTAL 0.5 MG/DL (0.1-1.0)
[2022-09-06 10:37] LABS: CREATININE SERUM 0.78 MG/DL (0.60-1.30)
[2022-09-06] MEDS ORDERED: IOHEXOL 350 MG/ML 100 ML (OMNIPAQUE 350) VIAL IV ONE (11:15)
[2022-09-06] MEDS ORDERED: NS 100 ML (IVPB) BAG IV ONE (11:15)
[2022-09-06] MEDS ORDERED: HOLD METFORMIN - RECEIVED CONTRAST 20 ML VIAL IV SCH (11:15)
--- NOTE | 2022-09-06 12:08 | Diagnostic Imaging Report ---
PROCEDURE: CT angiography of the head and CT angiography of the neck with and without contrast. TECHNIQUE: Contiguous noncontrast images were obtained from the skull base through the vertex. After intravenous contrast administration, helical CT angiography of the neck was performed. Source data was reformatted into 3D MIP projections. Delayed post contrast acquisition was also obtained. Auto Exposure Controls were utilized during the CT exam to meet ALARA standards for radiation dose reduction. INDICATION: Left arm numbness as well as chest pain, stuttering and elevated blood pressure. No prior studies are available for comparison. Precontrast imaging through the brain demonstrates ventricles and sulci to be within normal limits. No sulcal effacement or midline shift is identified. No acute intra-axial or extra-axial hemorrhage is detected. Cisterns are patent. Visualized paranasal sinuses are clear. There is a three-vessel branching pattern to the aortic arch. Both common carotid arteries appear to be widely patent. Carotid bifurcations are unremarkable. There is some calcified plaque in both carotid bifurcations. The right and left internal carotid arteries appear to be widely patent. The vertebral arteries are codominant. The right and left vertebral arteries appear to be widely patent. Basilar artery is patent. The right and left posterior cervical arteries appear to be widely patent. The M1 and M2 segments of the right and left middle cerebral arteries are widely patent. No definite thromboemboli or large vessel occlusion is identified. The right and left anterior cerebral arteries appear to be widely patent. IMPRESSION: Essentially unremarkable CT angiogram of the head and neck. No definite thromboembolism or large vessel occlusion is identified. Dictated by: Dictated on workstation # [id number]
[2022-09-06] MEDS ORDERED: NICOTINE 21 MG (NICODERM) PATCH TD ONE (12:45)
[2022-09-06] MEDS ORDERED: lisINopril 10 MG (PRINIVIL) TABLET PO SCH (16:15)
[2022-09-06] MEDS ORDERED: VILA20TA PO (16:33)
[2022-09-06] MEDS ORDERED: LISI10TA25 PO (16:33)
[2022-09-06] MEDS ORDERED: FLUT1DIS26 IH (16:58)
[2022-09-06] MEDS ORDERED: ALBU6.7H13 INH (16:58)
[2022-09-06] MEDS ORDERED: LORazepam 0.5 MG (ATIVAN) TABLET PO PRN (17:00)
[2022-09-06] MEDS ORDERED: hydrALAZINE (APESOLINE) 20 MG/ML VIAL IV PRN (20:15)
[2022-09-06 21:31] LABS: FREE T4 (FREE THYROXINE) 0.77 NG/DL (0.70-1.48)
--- NOTE | 2022-09-06 23:00 | CONSULTATION REPORT ---
HISTORY OF PRESENT ILLNESS: The patient is a 62-year-old female with a history of depression, anxiety, COPD, current tobacco abuse, hypertension, who presents for evaluation of shoulder and neck pain, numbness and tingling in her left upper and left lower extremities. The patient states that she recently started antihypertensives several weeks ago. She has been placed on lisinopril 10 mg p.o. daily. She has been checking her blood pressures at home and has noted some high blood pressures. Today, she noted blood pressures as high as 193/110 and became concerned In addition to that, she also commented that she began to develop left upper extremity paresthesias and numbness that began to wear and that she also noted left lower extremity paresthesias and numbness. In that setting, she came in for evaluation. EKG here demonstrates normal sinus rhythm with early R-wave progression, no signs of ischemia or infarction. Chest x-ray is negative for any acute intrathoracic process. Head CTA was unremarkable and no definite thromboembolic or large vessel occlusion was noted. Troponins were negative. The patient was treated with lisinopril 10, nicotine patch, aspirin in the emergency room and subsequently transferred to the floor. She denies any harjinder chest pain, PND, orthopnea, pain radiating to her jaw or back, but she does note some neck discomfort, particularly in the posterior aspect of her neck. She comments that the discomfort is present at all times and does necessarily get worse with exertion. REVIEW OF SYSTEMS: All systems were reviewed and are negative except for what has been described in HPI. PAST MEDICAL HISTORY: Depression, anxiety, COPD, current tobacco abuse, hypertension. MEDICATIONS: Aspirin 81, lisinopril 10, Ativan, and [ ]. SOCIAL HISTORY: Tobacco abuse, smoked 1.5 packs per day x50 years and continues to smoke. Denies alcohol or illicit drug use. FAMILY HISTORY: Significant for father with OH x2 and a fatal OH at age 52. PHYSICAL EXAMINATION: VITAL SIGNS: T-max 36.8, heart rate 60s to 80s, respiratory rate 16-20, blood pressure 160 to 200/90 to 100, satting greater than 94% on room air. GENERAL: She is in no acute distress. She is resting comfortably in the bed. NECK: Soft and supple. No cervical lymphadenopathy or thyromegaly. LUNGS: Do demonstrate positive rhonchi and wheezing in the bilateral lung mcgraw. No rales. HEART: Regular rate and rhythm, normal S1, S2. No gallops or rubs. She does have a soft systolic murmur heard best along the left sternal border. ABDOMEN: Positive bowel sounds, soft, nontender, nondistended, no hepatosplenomegaly. EXTREMITIES: Warm and well perfused. She has no cyanosis, clubbing or edema. SKIN: No lesions, rashes or ecchymoses are noted. LABORATORY AND IMAGING DATA: Significant for white blood cell count of 7.1, hematocrit 38, platelets of 511. INR is 1.0. Sodium 139, potassium 3.6, chloride 107, bicarbonate 18, BUN 9, creatinine 0.8. LFTs within normal limits. Troponin I is negative x1. Head CTA is unremarkable. No definite thromboembolic or large vessel occlusion was noted. Chest x-ray is negative for any acute intrathoracic process. EKG demonstrates normal sinus rhythm with early R-wave progression. ASSESSMENT AND PLAN: The patient is a 62-year-old female with the above-mentioned medical problems who presents with hypertensive urgency. 1. Hypertensive urgency: We will address her blood pressures. I have written her for an increase in lisinopril to 10 mg p.o. b.i.d., carvedilol 3.125 mg p.o. b.i.d. and hydrochlorothiazide 25 mg p.o. daily. We will target blood pressures for overnight in the 160 range and then further in the 100 to 130 range as we go forward. We will perform a secondary hypertension workup, which will include urine serum metanephrines, renin and aldosterone, cortisol, TSH and a free T4; check a renal duplex ultrasound as well as an outpatient she should be sent home with a sleep study to check for any occult signs of obstructive sleep apnea. She has been written for hydralazine p.r.n. to help with blood pressures above 170. I recommend continue to trend her troponins. 2. Paresthesias unclear etiology: I do think at least pursuing an MRI to ensure that there are no findings consistent with stroke as would be useful in this scenario. 3. Smoking. Recommend smoking cessation. Continue with nicotine for now. DISPOSITION: Cardiology services will not be available starting 09/07/2022 at 0700 to 09/11/2022 at 0700. If she requires urgent cardiac evaluation, recommend transfer to an outpatient set to an outside facility. Thank you very much for allowing me to participate in her care. Job ID: [id number] DocumentID: [id number] Dictated Date: 09/06/2022 22:27:14 Double Reamer Operator Date: 09/06/2022 22:58:00 Dictated By: LI FULLER MD
[2022-09-07 04:23] VITALS: BP 131/91
[2022-09-07 05:20] LABS: BASOPHILS # (AUTO) 0.1 10^3/uL (0.0-0.1); BASOPHILS % (AUTO) 1 % (0-10); EOSINOPHILS # (AUTO) 0.1 10^3/uL (0.0-0.3); EOSINOPHILS % (AUTO) 2 % (0-10); HEMATOCRIT 39 % (35-52); HEMOGLOBIN 12.5 g/dL (11.5-16.0); LYMPHOCYTES % (AUTO) 47 % (12-44); MEAN CORPUSCULAR HEMOGLOBIN 29 pg (25-34); MEAN CORPUSCULAR HGB CONC 33 g/dL (32-36); MEAN CORPUSCULAR VOLUME 90 fL (80-99); MEAN PLATELET VOLUME 9.3 fL (9.0-12.2); MONOCYTES # (AUTO) 0.5 10^3/uL (0.0-1.0); MONOCYTES % (AUTO) 8 % (0-12); NEUTROPHILS # (AUTO) 2.7 10^3/uL (1.8-7.8); NEUTROPHILS % (AUTO) 42 % (42-75); PLATELET COUNT 478 10^3/uL (130-400); WHITE BLOOD COUNT 6.4 10^3/uL (4.3-11.0)
[2022-09-07 06:07] LABS: ALBUMIN 4.4 GM/DL (3.2-4.5); BILIRUBIN,TOTAL 0.6 MG/DL (0.1-1.0); CALCIUM 9.9 MG/DL (8.5-10.1); CREATININE SERUM 0.77 MG/DL (0.60-1.30); POTASSIUM 3.8 MMOL/L (3.6-5.0); TOTAL PROTEIN 7.6 GM/DL (6.4-8.2)
--- NOTE | 2022-09-07 06:16 | History & Physical-Hospitalist ---
History of Present Illness HPI/Chief Complaint CC: HTN urgency HPI: This is a 62yoWF clinic patient of [facility] who presented to the ER with HTN urgency. She was just recently placed on BP meds 1 week ago but it continued to increase. Secondary HTN diagnosis is pursued but renal arteries were normal on USG and prelim w/u was normal and ECHO completed but not read. BP is good now and will add Norvasc and send into pharmacy. Source: patient Exam Limitations: clinical condition Date Seen 09/07/22 Time Seen by a Provider: 12:00 Attending Physician [facility] PCP Admitting Physician: Gisella Buitrago MD Attending Physician: Gisella Buitrago MD Referring Physician Date of Admission Sep 06, 2022 at 14:42 Home Medications & Allergies Home Medications Reviewed patient Home Medication Reconciliation performed by pharmacy medication reconciliations airframe technician and/or nursing. Patients Allergies have been reviewed. Allergies Allergies Coded Allergies No Known Drug Allergies (Unverified08/07/17) Past Uzahgns-Qjtwzt-Tnkoqg Hx Patient Social History Marrital Status: single Employed/Student: retired Tobacco Use?: Yes Tobacco type used: Cigarettes Smoking Status: Current Someday Smoker Use of E-Cig and/or Vaping dev: No Substance use?: No Substance type: Marijuana Additional substance use comme: GUMMIES Alcohol Use?: Yes Alcohol type: Beer Alcohol Frequency: Couple times a week Pt feels they are or have been: No Immunizations Up To Date Date of Influenza Vaccine: Aug 08, 2017 First/Initial COVID19 Vaccinat: YES Second COVID19 Vaccination Papo: YES Tetanus Booster (TDap): Unknown PED Vaccines UTD: Yes Seasonal Allergies Seasonal Allergies: No Current Status status: No status: No Advance Directives: No Communicates: Verbally Primary Language: Vietnamese Preferred Spoken Language: Vietnamese Is interpretation needed?: No Sensory deficits: Vision impairment Implanted or Applied Medical D: Orthopedic hardware Past Medical History Surgeries: Abdominal, Gallbladder, Hysterectomy COPD Currently Using CPAP: No Currently Using BIPAP: No Hypertension 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 Sexually Transmitted Disease: No HIV/AIDS: No Chronic Back Pain Blood Disorders: No Adverse Reaction/Blood Tranf: No Family Medical History Cardiovascular disease 19 FATHER 19 MOTHER Myocardial infarction 19 FATHER (2 HEART ATTACKS AT AGE 52 FROM 2ND HEART ATTACK) 19 MOTHER Neoplasm MATERNAL GRANDMOTHER (BOTH BREAST REMOVED DUE TO BREAST CANCER) No Pertinent Family Hx Review of Systems Constitutional: see HPI, malaise, weakness Physical Exam Physical Exam Vital Signs Vital Signs - First Documented 09/06/22 09:30 Temp 36.7 Pulse 85 Resp 18 B/P (MAP) 157/99 (118) Pulse Ox 96 O2 Delivery Room Air Capillary Refill : Less Than 3 Seconds Height, Weight, BMI Height: 5'6.50" Weight: 170lbs. 5.0oz. 77.983616ly; 27.68 BMI Method:Stated General Appearance: No Apparent Distress Eyes: Right Eye Normal Inspection, Right Eye PERRL HEENT: PERRL/EOMI, TMs Normal, Normal ENT Inspection, Pharynx Normal, Moist Mu cous Membranes Neck: Full Range of Motion, Normal Inspection, Non Tender Respiratory: Chest Non Tender, Lungs Clear, Normal Breath Sounds, No Accessory Muscle Use, No Respiratory Distress Cardiovascular: Regular Rate, Rhythm, No Edema, No Gallop, No JVD, No Murmur, Normal Peripheral Pulses Gastrointestinal: Normal Bowel Sounds, No Organomegaly, No Pulsatile Mass, Non Tender, Soft Back: Normal Inspection, No CVA Tenderness, No Vertebral Tenderness Extremity: Normal Capillary Refill, Normal Inspection, Normal Range of Motion, Non Tender, No Calf Tenderness, No Pedal Edema Neurologic/Psychiatric: Alert, Oriented x3, No Motor/Sensory Deficits, Normal Mood/Affect Skin: Normal Color, Warm/Dry Lymphatic: No Adenopathy Results Results/Procedures Labs Laboratory Tests 09/06/22 09:45 09/07/22 04:16 Patient resulted labs reviewed. Assessment/Plan Admission Diagnosis Assessment: HTN urgency No evidence of TIA Plan: BP meds F/U clinic Admission Status: Observation Diagnosis/Problems Diagnosis/Problems (1) High blood pressure Status: Acute Qualifiers: Hypertension type: unspecified Qualified Codes: I10 - Essential (primary) hypertension Clinical Quality Measures AMI/AHF: ASA po Prior to arrival: No Smoking Cessation Counseling: Counseling-Symptomatic: 3-10 Minutes REY FERREIRA DO Sep 07, 2022 06:16
[2022-09-07 07:58] VITALS: BP 131/85
[2022-09-07] MEDS ORDERED: lisINopril 20 MG (PRINIVIL) TABLET PO SCH (09:00)
[2022-09-07] MEDS ORDERED: ASPIRIN E.C. 81 MG (ECOTRIN) TAB PO SCH (09:00)
[2022-09-07] MEDS ORDERED: lisINopril 10 MG (PRINIVIL) TABLET PO SCH (09:00)
--- NOTE | 2022-09-07 09:04 | Diagnostic Imaging Report ---
INDICATION: Hypertension Doppler renal ultrasound Duplex ultrasound of the kidneys with grayscale, spectral wave form and color Doppler analysis. Right kidney measures 10.6 x 4.6 x 4.8 cm. Left kidney measures 9.7 x 5.0 x 5.6 cm. There is no mass, calculus or hydronephrosis in either kidney. The patient has normal peak systolic renal artery velocities. The ratio between the renal arteries and aorta peak systolic velocities are normal. There is good color filling of both kidneys. IMPRESSION: There is no sonographic evidence for renal artery stenosis. Dictated by: Dictated on workstation # [id number]
[2022-09-07] MEDS ORDERED: ASPI-1238 PO (10:51)
[2022-09-07] MEDS ORDERED: LISI10TA25 PO (10:51)
[2022-09-07] MEDS ORDERED: AMLO-250 PO (10:51)
[2022-09-07] MEDS ORDERED: CLN.1T PO (10:51)
[2022-09-07] MEDS ORDERED: NICO1PAT34 TD (10:51)
--- NOTE | 2022-09-07 10:52 | Discharge Summary ---
Discharge Summary Hospital Course Was the Problem List Reviewed?: Yes Problems/Dx: (1) High blood pressure Status: Acute Qualifiers: Qualified Codes: I10 - Essential (primary) hypertension Hospital Course Date of Admission: Sep 06, 2022 at 14:42 Admission Diagnosis : Family Physician/Provider: [place] Date of Discharge: 09/07/22 Discharge Diagnosis: HTN urgency Hospital Course: See HPI Labs and Pending Lab Test: Laboratory Tests 09/06/22 20:50: Thyroid Stimulating Hormone (TSH) 1.24, Free Thyroxine 0.77 09/07/22 04:16: White Blood Count 6.4, Red Blood Count 4.29, Hemoglobin 12.5, Hematocrit 39, Mean Corpuscular Volume 90, Mean Corpuscular Hemoglobin 29, Mean Corpuscular Hemoglobin Concent 33, Red Cell Distribution Width 15.7H, Platelet Count 478H, Mean Platelet Volume 9.3, Immature Granulocyte % (Auto) 0, Neutrophils (%) (Auto) 42, Lymphocytes (%) (Auto) 47H, Monocytes (%) (Auto) 8, Eosinophils (%) (Auto) 2, Basophils (%) (Auto) 1, Neutrophils # (Auto) 2.7, Lymphocytes # (Auto) 3.0, Monocytes # (Auto) 0.5, Eosinophils # (Auto) 0.1, Basophils # (Auto) 0.1, Immature Granulocyte # (Auto) 0.0, D-Dimer 0.64H, Sodium Level 140, Potassium Level 3.8, Chloride Level 104, Carbon Dioxide Level 22, Anion Gap 14, Blood Urea Nitrogen 10, Creatinine 0.77, Estimat Glomerular Filtration Rate 86, BUN/Creatinine Ratio 13, Glucose Level 93, Mean Blood Glucose [Pending], Hemoglobin A1c [Pending], Calcium Level 9.9, Corrected Calcium 9.6, Total Bilirubin 0.6, Aspartate Amino Transf (AST/SGOT) 18, Alanine Aminotransferase (ALT/SGPT) 10, Alkaline Phosphatase 89, Total Protein 7.6, Albumin 4.4, Triglycerides Level 98, Cholesterol Level 229H, LDL Cholesterol Direct 124, VLDL Cholesterol 20, HDL Cholesterol 80H, Total Cortisol [Pending], Plasma Free Metanephrine [Pending], Plasma Normetanephrine [Pending], Plasma Metanephrine Interpretation [Pending] 09/07/22 10:35: Renin Activity [Pending], Aldosterone [Pending], Aldosterone/Renin Ratio [Pending] Home Meds Active Clonidine HCl 0.1 Mg Tablet 0.1 Mg PO Q4H PRN Aspirin EC (Aspirin) 81 Mg Tablet.dr 81 Mg PO DAILY Amlodipine Besylate 5 Mg Tablet 5 Mg PO DAILY Nicoderm Cq (Nicotine) 21 Mg/24 Hour Patch.td24 21 Mg TD DAILY@0900 Lisinopril 10 Mg Tablet 10 Mg PO DAILY Reported Advair 250-50 Diskus (Fluticasone/Salmeterol) 250 Mcg-50 Mcg/Dose Blst.w.dev 1 Each IH TID PRN Proventil Hfa (Albuterol Sulfate) 90 Mcg Hfa.aer.ad 2 Puff INH QID PRN Viibryd (Vilazodone Hydrochloride) 20 Mg Tablet 30 Mg PO DAILY Ibuprofen 200 Mg Tablet 800 Mg PO Q6H PRN TAKES 4 (200 MG) TABLETS Assessment/Pt Instructions chc 1 week Discharge Planning: <30 minutes discharge planning Discharge Instructions Discharge Diet: No Restrictions Discharge Physical Examination Vital Signs Vital Signs Date Time Temp Pulse Resp B/P (MAP) Pulse Ox O2 Delivery O2 Flow Rate FiO2 09/07/22 08:00 97 Room Air 09/07/22 07:58 36.1 75 18 131/85 (100) General Appearance: No Apparent Distress, WD/WN, Chronically ill Respiratory: Lungs Clear, Normal Breath Sounds Cardiovascular: Regular Rate, Rhythm Neurologic/Psychiatric: Alert, Oriented x3, No Motor/Sensory Deficits, Normal Mood/Affect Allergies: Coded Allergies: No Known Drug Allergies (Unverified , 08/07/17) Discharge Summary Date of Admission Sep 06, 2022 at 14:42 Date of Discharge Discharge Date: Sep 07, 2022 Clinical Quality Measures AMI/AHF: ASA po Prior to arrival: No Smoking Cessation Counseling: Counseling-Symptomatic: 3-10 Minutes REY FERREIRA DO Sep 07, 2022 10:52
[2022-09-07] MEDS ORDERED: NICOTINE 21 MG (NICODERM) PATCH TD SCH (11:00)
[2022-09-07] MEDS ORDERED: amLODIPine 5 MG (NORVASC) TAB PO NR (11:00)
[2022-09-07 11:45] VITALS: BP 122/85
[2022-09-07 13:25] VITALS: BP 122/85
[2022-09-08] MEDS ORDERED: NICOTINE PATCH REMOVAL TP SCH (08:59)
[2022-09-08] MEDS ORDERED: amLODIPine 5 MG (NORVASC) TAB PO SCH (09:00)
== END 2022-09-07 13:25 | disposition home or self-care (01) | DRG 305 ==
LOC: EDUNIT# 09:28 → ER 09:31 → OBSVTOIN 14:42 → CSD 14:42
PROVIDERS: ADMIT Family Medicine; ATTEND Family Medicine
DX: I16.0 Hypertensive urgency (principal); R20.2 Paresthesia of skin; J44.9 Chronic obstructive pulmonary disease, unspecified; F32.A Depression, unspecified; F41.9 Anxiety disorder, unspecified; F17.210 Nicotine dependence, cigarettes, uncomplicated; Z79.899 Other long term (current) drug therapy
CPT/HCPCS: 36415; 70496; 70498; 71045; 76770; 80053; 80061; 82088; 82533; 83036; 83735; 83835; 84244; 84439; 84443; 84484; 85025; 85379; 85610; 85730; 93005; 93041; 93306; 93975